=== PATIENT | female | born 1930 | race Caucasian/White ===

== ENCOUNTER 2016-11-14 21:05 | Observation (INO) | payer MEDICARE, OTHER, MEDICAID ==
[~2016-11-14] VITALS: Ht 165.1 cm; Wt 35.7 kg
--- NOTE | ~2016-11-14 | HP ---
PATIENT'S NAME: ALANA BUCHANAN [facility] AGE: 86 Y [address] ROOM: [place] [address] LOCATION: [facility] ADMIT DATE: 11/14/2016 History & Physical DISCHARGE DATE: 11/15/2016 FAMILY PHYSICIAN: , UNKNOWN ATTENDING PHYSICIAN: Consuelo Dove DATE OF SERVICE: 11/15/2016 PATIENT IDENTIFICATION: Alana Buchanan is an 86-year-old female. PRESENTING COMPLAINT: Fall. HISTORY OF PRESENT ILLNESS: The patient was transferred from [facility]. The patient fell while trying to get into her wheelchair today. The patient is a left above knee amputee. She some how fell in the trailer where she lives. She was taken to [facility] and was found to have a small intracranial hemorrhage. She was therefore referred to [facility] for neurosurgical evaluation and treatment. Currently, the patient says she just hurts all over, but is not complaining of any specific pain. PAST MEDICAL HISTORY: According to the records, the patient was recently admitted to [facility] with shortness of breath. She is on home oxygen 3 to 5 L during the day. She has a history of COPD. Other past medical history includes hypertension, peripheral vascular disease status post left above knee amputation. The patient also has an abdominal artery aneurysm. ALLERGIES: 1. PENICILLIN. 2. DEMEROL. CURRENT MEDICATIONS: 1. Aspirin. 2. Lipitor. 3. Lactobacillus. 4. Oxygen. 5. Protonix. 6. Spiriva. SOCIAL HISTORY: The patient smokes about half a pack of cigarettes a day for many years. She denies alcohol or illegal drug use. PATIENT'S NAME: ALANA BUCHANAN [facility] AGE: 86 Y [address] ROOM: [place] [address] LOCATION: [facility] ADMIT DATE: 11/14/2016 History & Physical DISCHARGE DATE: 11/15/2016 FAMILY PHYSICIAN: PHYSICIAN, UNKNOWN ATTENDING PHYSICIAN: Consuelo Dove FAMILY HISTORY: According to the records, the patient's parents from complications related to stroke at an advanced age. REVIEW OF SYSTEMS: A 10-point review of systems was carried out. The only abnormal findings are the generalized pain which the patient complains about. PHYSICAL EXAMINATION: VITAL SIGNS: Vital Signs from transfer notes; blood pressure 120/70 and pulse rate is 84. GENERAL: The patient is a frail looking elderly female who was alert and cooperative through the examination. NEUROLOGIC: Her speech is clear. Cranial Nerves: The patient is a little hard of hearing. Motor: The patient moves all extremities well. She has a left above knee amputation. EXTREMITIES: No cyanosis or clubbing. SKIN: No skin rashes or skin masses. HEENT: Her head is atraumatic. Eyes and ears with no evidence of trauma. The patient has a superficial laceration to the scalp. REVIEW OF IMAGING STUDIES: The patient has had a head CT scan performed in [place]. The head CT scan shows a 3 mm hemorrhage in the left thalamus area. The patient has also had pelvic x-rays and the read from [place] indicates closed superior pubic ramus fracture. LABORATORY INVESTIGATIONS: White count is 8.4, hemoglobin is 15.3, platelets 102. Sodium 141, potassium 4.4 and glucose 96. IMPRESSION: An 86-year-old female with small intracranial hemorrhage and closed superior pubic ramus fracture secondary to fall at home. MEDICAL DECISION MAKING: The patient is being admitted for observation. There is no indication for neurosurgical intervention. The patient is likely going to be observed and then transferred back to [place] either to her own home or to assisted living. PATIENT'S NAME: ALANA BUCHANAN [facility] AGE: 86 Y [address] ROOM: [place] [address] LOCATION: [facility] ADMIT DATE: 11/14/2016 History & Physical DISCHARGE DATE: 11/15/2016 FAMILY PHYSICIAN: PHYSICIAN, UNKNOWN ATTENDING PHYSICIAN: Consuelo Dove MD ELSY GUADARRAMA/eamon /[id number] D: [id number] T: [id number] HISTORY & PHYSICAL
[~2016-11-14 21:05] MED LIST: ASPIRIN LO-DOSE81 MG PO; OXYGEN M-15 INH; SPIRIVA HANDIHA1 KIT INH
--- NOTE | 2016-11-15 02:19 | NUR ---
PATIENT ARRIVED TO UNIT PER [facility]IA [facility]ULANCE AT 2300 FROM [place]. PATIENT STATED THAT SHE WAS TRYING TO GET TO HER WHEELCHAIR AFTER USING THE BATHROOM AND FELL. ALERT AND ORIENTED TO PERSON- DID STATE THAT SHE WAS 56 Y/O. ON 4L OF O2 PER NASAL CANNULA. PIV IN RIGHT HAND SL'D. DOES HAVE A LEFT ABOVE THE KNEE AMPUTATION. SKIN TEAR TO LEFT OUTER BICEP. IS NOT A GOOD HISTORIAN. TRACY JACKSON
--- NOTE | 2016-11-15 02:26 | NUR ---
Significant Event: PATIENT IS ALERT AND ORIENTED TO PERSON AND PLACE. FOLLOWS COMMANDS. VSS. PUPILS ARE PINPOINT. GENERALIZED WEAKNESS. DENIES DUQUE, PAIN, AND N/T. SINUS RHYTHM. 2+ PULSES-NO EDEMA. 2A- LEFT AKA. 4-5L OF O2 PER NASAL CANNULA- C/D THROUGHOUT. REGULAR DIET-HAD JELLO AND TOLERATED IT WELL NO PROBLEMS WITH SWALLOWING COULD TAKE MEDS WHOLE. BOWELS ARE ACTIVE X4-LAST BM 11/13. SKIN TEAR TO THE LEFT OUTER BICEP- CLEANED AND APPLIED PROT.GAUZE/GAUZE/GAUZE WRAP. Follow up: DISCHARGE TO HOME TODAY 11/15/16
[2016-11-15] MEDS ORDERED: SLEEP AID25 M1 PO (09:27)
[2016-11-15] MEDS ORDERED: SYMBICORT 16010.2 GM INH (09:27)
[2016-11-15] MEDS ORDERED: LIPITOR20 M1 PO (14:55)
[2016-11-15] MEDS ORDERED: HUMIBID LA (MU600 MG PO (14:55)
[2016-11-15] MEDS ORDERED: PROTONIX40 MG PO (14:56)
[2016-11-15] MEDS ORDERED: LACTINEX (FLORA1 TAB PO (14:56)
--- NOTE | 2016-11-15 15:27 | NUR ---
Significant Event: A/O X 3. Forgetful. Does get irritated/angry and refuses cares at times. Also, when asked why what happened that brought her to the hospital she stated she "did not want to discuss it". Pupils are pinpoint and brisk. equal strength bilateral upper extremities and moderate strength right lower extremity. Does have left above the knee amputation with no prosthesis. PRN tylenol and prn morphine for pelvic and left upper arm pain. on 4 liters of oxygen continuously per home. IV to right hand saline locked. 2 person assist with gait belt for transfers. incontinent of large amounts or urine. takes meds whole. regular diet. discharge plan: home today?
== END 2016-11-15 22:37 | disposition disaster alternative care site (69) ==
LOC: GNTU 22:51
PROVIDERS: ADMIT Neurological Surgery
DX: S06.300A Unspecified focal traumatic brain injury without loss of consciousness, initial encounter (principal); J44.9 Chronic obstructive pulmonary disease, unspecified; I10 Essential (primary) hypertension; I73.9 Peripheral vascular disease, unspecified; F17.210 Nicotine dependence, cigarettes, uncomplicated; Z88.0 Allergy status to penicillin; Z88.8 Allergy status to other drugs, medicaments and biological substances; Z79.82 Long term (current) use of aspirin; Z79.899 Other long term (current) drug therapy; Z89.612 Acquired absence of left leg above knee; Z98.890 Other specified postprocedural states; W01.0XXA Fall on same level from slipping, tripping and stumbling without subsequent striking against object, initial encounter
CPT/HCPCS: G0378; J2270